=== PATIENT | female | born 1965 | race Caucasian/White ===

== ENCOUNTER → 2016-11-24 | Outpatient (CLI) | payer BC ==
[~2016-11-24] MED LIST: BUPR-79 PO; BUPR75TA20 PO; MELO7.5T5 PO; MULT-506 PO
--- NOTE | 2016-11-24 10:42 | DIAGNOSTIC IMAGING REPORT ---
LUMBAR SPINE MRI HISTORY: Low back pain. TECHNIQUE: Multiplanar multisequence MRI of the lumbar spine was performed without the use of contrast. COMPARISON: Lumbar spine 10/28/2016. FINDINGS: For the purpose of the report the L5-S1 disc space will be located on axial image 27 of 30. There is 2 mm of anterolisthesis of L3 on L4. Remaining vertebral bodies are well aligned. No acute fractures. A 2.8 cm lesion within the L3 vertebral body. This likely represents a hemangioma. There is also a 1.4 cm hemangioma within the L1 vertebral body. The conus terminus at the T12-L1 disc space. Paraspinal soft tissues are unremarkable. No significant disc space narrowing. Mild facet osteoarthritis within the mid to lower lumbar spine. L1-L2: No significant central canal or neural foraminal narrowing. Tiny broad-based posterior disc bulge. L2-L3: Small broad-based posterior disc bulge asymmetric to the right. No significant central canal narrowing. There is mild right-sided neural foraminal narrowing. L3-L4: Small broad-based posterior disc bulge with mild ligamentum and facet hypertrophy resulting in mild central canal and mild bilateral neural foraminal narrowing. L4-L5: Small broad-based posterior disc bulge. Tiny bilateral foraminal annular tears. No significant central canal narrowing. There is mild bilateral neural foraminal narrowing due to the facet hypertrophy and disc bulge. L5-S1: No disc herniations. No significant central canal or neural foraminal narrowing. IMPRESSION: 1. No fractures identified within the lumbar spine. 2. Grade I anterolisthesis of L3 on L4, unchanged. 3. Mild lumbar spondylosis as described above most pronounced at the L3-L4 level with there is mild central canal and mild bilateral neural foraminal narrowing. 4. Mild facet degenerative changes within the mid to lower lumbar spine Electronically signed by: Harry Breen M.D. 11/24/2016 10:40 AM Dictated Date/Time: 11/24/2016 10:31 AM
== END | disposition home or self-care (01) ==
LOC: C.MRI 09:19
PROVIDERS: ATTEND Physical Medicine & Rehabilitation
DX: M54.18 Radiculopathy, sacral and sacrococcygeal region (principal)

== ENCOUNTER → 2016-11-28 | Outpatient (CLI) | payer BC | END | disposition home or self-care (01) | LOC: C.PAPS 13:37 | PROVIDERS: ATTEND Obstetrics & Gynecology | DX: Z01.419 Encounter for gynecological examination (general) (routine) without abnormal findings (principal) ==

== ENCOUNTER → 2016-12-31 | Day surgery (SDC) | payer BC ==
[2016-12-17 08:03] VITALS: Ht 165.1 cm; Wt 65.9 kg
[~2016-12-31] VITALS: Ht 165.1 cm; Wt 65.9 kg
[~2016-12-31] MED LIST changes: +BUPIVACAINE 0.25% 2.5MG/ML PF 10 ML VIAL INFIL ONE; -BUPR75TA20 PO; +LIDOCAINE HCL 1% MPF 5 ML VIAL ONE; -MELO7.5T5 PO
--- NOTE | 2016-12-31 13:51 | History & Physical Bridge - SC ---
H&P Re-Evaluation Bridge Note: I have examined the patient, reviewed the History & Physical and in the interval since the performance of the History & Physical I have noted the following changes of clinical significance: No changes noted
--- NOTE | 2016-12-31 14:21 | Discharge Instructions ---
Discharge Instructions Visit Reason for Visit: Low Back Pain Discharge Discharge Diagnosis / Problem: Low back pain Discharge Goals Goal(s): Decrease discomfort, Improve function Activity Recommendations Activity Limitations: resume your previous activity Anesthesia . Post Anesthesia Instructions: If you have had General Anesthesia or IV Sedation: * Do not drive today. * Resume driving when surgeon permits. * Do not make important decisions or sign legal documents today. * Call surgeon for: 1. Temperature elevations greater than 101 degrees F. 2. Uncontrollable pain. 3. Excessive bleeding. 4. Persistent nausea and vomiting. 5. Medication intolerance (nausea, vomiting or rash). * For nausea and vomiting use only clear liquids such as: tea, soda, bouillon until nausea subsides, then gradually increase diet as tolerated. * If you have any concerns or questions, call your surgeon's office. If physician is unavailable and it is an emergency, call 911 or go to the nearest emergency room. . Diet Recommendations Recommended Home Diet: resume previous diet Procedures Procedures Performed: BILATERAL L4-5 MEDIAL BRANCH BLOCK Pending Studies Studies pending at discharge: no Medical Emergencies . Who to Call and When: Medical Emergencies: If at any time you feel your situation is an emergency, please call 911 immediately. . Non-Emergent Contact Non-Emergency issues call your: Specialist . . "Provider Documentation" section prepared by Talha Shah.
[2016-12-31 14:22] VITALS: TEMP 36.8
[2016-12-31 14:28] VITALS: BP 110/87; PULSE 80; O2SAT 96
--- NOTE | 2017-01-01 01:06 | OPERATIVE REPORT ---
DATE OF OPERATION: 12/31/2016 PREOPERATIVE DIAGNOSES: Chronic low back pain, grade 1 L3-L4 spondylolisthesis with L4-L5 bilateral facet arthropathy. POSTOPERATIVE DIAGNOSES: Same. PROCEDURE: Bilateral L4-L5 medial branch blocks. INDICATIONS: The patient is a 51-year-old white female that has pain localizing to her lower lumbar spine. Her physical examination, history findings, and MRI are consistent with a facet arthropathy and she presents today for medial branch blocks to indeed confirm this as the pain generator for her lower lumbar spine. PHYSICAL EXAMINATION: Pleasant female seated comfortably. She has tenderness to palpation over the L4-L5 facet areas. This is worse with extension and rotation, other areas are nontender. She has some equivocable to decreased sensation in the right L5 dermatomal distribution. CONSENT: Verbal and written consent was obtained from the patient. Risks and benefits were reviewed. Risks include but are not limited to abscess and allergic reaction. The patient wishes to proceed. DESCRIPTION OF PROCEDURE: The patient was taken back to the special procedures room of the [facility] where she was maintained in a prone position. Backside was cleansed with Betadine x3 and a dry sterile dressing was applied. Fluoroscope was used to identify the left L4 transverse process and the left 5 transverse process junctions and the overlying skin was anesthetized with 2 mL of lidocaine with a 25-gauge 1.5-inch needle on the left side at L4 and then at L5. A 25-gauge 3.5-inch spinal needle was then directed under fluoroscopic guidance, contacting bony target at each site and then injected with 1 mL of bupivacaine 0.25%. The right L4 transverse process junction and the right L5 transverse process junction were then fluoroscopically identified. Overlying skin anesthetized with 1.25 mL of lidocaine 1% with a 25-gauge 1.5-inch needle. A 25-gauge 3.5-inch spinal needle at each site contacted bone at L4, then L5, and she then underwent injection after negative aspiration of bupivacaine 0.25%, 1 mL at each site. The procedure was well tolerated. DISPOSITION: 1. The patient is taken out into the discharge recovery area where she will be discharged home once discharge criteria have been met. 2. Follow up in the [facility] office in 2-4 weeks. I attest to the content of the Intraoperative Record and any orders documented therein. Any exceptio ns are noted below.
== END | disposition home or self-care (01) ==
LOC: X.SURG 12:57
PROVIDERS: ATTEND Physical Medicine & Rehabilitation
DX: M47.816 Spondylosis without myelopathy or radiculopathy, lumbar region (principal); M43.16 Spondylolisthesis, lumbar region

== ENCOUNTER → 2017-06-26 | Outpatient (CLI) | payer BC ==
[~2017-06-26] MED LIST changes: -BUPIVACAINE 0.25% 2.5MG/ML PF 10 ML VIAL INFIL ONE; -LIDOCAINE HCL 1% MPF 5 ML VIAL ONE
--- NOTE | 2017-06-26 11:39 | DIAGNOSTIC IMAGING REPORT ---
RIGHT FOOT MIN 3 VIEWS ROUTINE CLINICAL HISTORY: Dorsal right first metatarsal pain. No recent injury. COMPARISON: None FINDINGS: Tarsometatarsal joints are intact. No acute fracture or osseous lesion is identified within the right foot. No erosions are identified. Joint spaces are preserved. IMPRESSION: Unremarkable right foot radiographs. Electronically signed by: Rolf Philippe M.D. 06/26/2017 11:38 AM Dictated Date/Time: 06/26/2017 11:37 AM
== END | disposition home or self-care (01) ==
LOC: C.RAD 10:32
PROVIDERS: ATTEND Family Medicine
DX: M79.671 Pain in right foot (principal)

== ENCOUNTER → 2017-07-09 | Outpatient (CLI) | payer BC ==
--- NOTE | 2017-07-09 11:37 | DIAGNOSTIC IMAGING REPORT ---
RIGHT LOWER EXT NON JOINT W/O CLINICAL HISTORY: R FOOT Pain/sprain, stress FX Right pain TECHNIQUE: Multiaxial MRI acquisition COMPARISON STUDY: None FINDINGS: Signal characteristics of all major osseous structures are unremarkable. There is no significant bone marrow replacing process. There is no abnormal periosteal change. All major ligamentous and tendinous structures are intact. There is a mild degree of subcutaneous and soft tissue edematous change dorsal to the metatarsals. No mass or collection is appreciated. IMPRESSION: 1. Mild nonspecific soft tissue edema dorsal to the metatarsal. 2. Study is otherwise negative. 3. No evidence for significant bony abnormality The above report was generated using voice recognition software. It may contain grammatical, syntax or spelling errors. Electronically signed by: Yinka Lafleur M.D. 07/09/2017 11:36 AM Dictated Date/Time: 07/09/2017 11:30 AM
== END | disposition home or self-care (01) ==
LOC: C.MRIBC 09:53
PROVIDERS: ATTEND Podiatrist
DX: M79.671 Pain in right foot (principal); M84.374A Stress fracture, right foot, initial encounter for fracture; S93.691A Other sprain of right foot, initial encounter; X58.XXXA Exposure to other specified factors, initial encounter; Z87.42 Personal history of other diseases of the female genital tract

== ENCOUNTER → 2017-08-04 | Outpatient (CLI) | payer BC ==
--- NOTE | 2017-08-05 08:12 | MAMMOGRAPHY REPORT ---
BILATERAL DIGITAL SCREENING MAMMOGRAM TOMOSYNTHESIS WITH CAD: 08/04/2017 CLINICAL HISTORY: Routine screening. Patient has no complaints. TECHNIQUE: Breast tomosynthesis in addition to standard 2D mammography was performed. Current study was also evaluated with a Computer Aided Detection (CAD) system. COMPARISON: Comparison is made to exams dated: 07/30/2016 mammogram, 05/02/2015 mammogram, 05/01/2014 ma mmogram, 04/28/2013 mammogram - [facility], 03/01/2012 breast MRI - Outside MRI, and 02/20/2012 ultrasound - [facility]. BREAST COMPOSITION: The tissue of both breasts is almost entirely fatty. The breast parenchyma is i ncreasingly fatty replaced comparing to prior mammograms. FINDINGS: No suspicious mass, architectural distortion or cluster of microcalcifications is seen. IMPRESSION: ACR BI-RADS CATEGORY 1: NEGATIVE There is no mammographic evidence of malignancy. A 1 year screening mammogram is recommended. The pa tient will receive written notification of the results. Approximately 10% of breast cancers are not detected with mammography. A negative mammographic report should not delay biopsy if a clinically suggestive mass is present. Mili Sylvester M.D. ay/:08/04/2017 16:13:38 Rf Technician: Sheri DEMPSEY(R)(M), [facility] letter sent: Normal 1/2 BI-RADS Code: ACR BI-RADS Category 1: Negative
== END | disposition home or self-care (01) ==
LOC: C.MAMM 09:09
PROVIDERS: ATTEND Family Medicine
DX: Z12.31 Encounter for screening mammogram for malignant neoplasm of breast (principal)

== ENCOUNTER 2017-11-02 06:24 | Emergency (ER) | payer BC ==
[~2017-11-02] VITALS: Ht 165.1 cm; Wt 69.5 kg
[2017-11-02 06:28] VITALS: TEMP 37.1; Ht 165.1 cm; Wt 69.5 kg
[2017-11-02] MEDS ORDERED: HYDR-4313 PO (07:06)
[2017-11-02] MEDS ORDERED: PSEUCAP67 PO (07:06)
[2017-11-02] MEDS ORDERED: SODIUM CHLORIDE 0.9% 1000ML 1,000 ML IV STA (07:12)
[2017-11-02] MEDS ORDERED: KETOROLAC TROMETHAMINE 30 MG/ML VIAL IV STA (07:12)
[2017-11-02] MEDS ORDERED: ONDANSETRON INJ 2 MG/ML 2 ML VIAL IV STA (07:12)
[2017-11-02] MEDS ORDERED: MoRPHine SULFATE 4 MG/ML 1 ML CARP\\VIAL IV PRN (07:15)
--- NOTE | 2017-11-02 07:35 | DIAGNOSTIC IMAGING REPORT ---
SINGLE VIEW CHEST CLINICAL HISTORY: Fever. Sepsis. FINDINGS: An AP, portable, upright chest radiograph is obtained. No prior studies are available for comparison at the time of dictation. The cardiomediastinal silhouette is unremarkable. The lungs and pleural spaces are clear. No pneumothorax is seen. The bony thorax is grossly intact. IMPRESSION: No active disease in the chest. Electronically signed by: Dave Dinero M.D. 11/02/2017 7:33 AM Dictated Date/Time: 11/02/2017 7:33 AM
[2017-11-02 07:44] LABS: BASO % 0.4 %; BASO ABS # 0.02 K/uL (0-0.2); EOS % 0.2 %; EOS ABS # 0.01 K/uL (0-0.5); HEMATOCRIT 38.3 % (37-47); HEMOGLOBIN 13.4 g/dL (12.0-16.0); IG# 0.01 K/uL (0.00-0.02); LYMPH % 4.1 %; LYMPH ABS # 0.19 K/uL (1.2-3.4); MEAN CELL VOLUME 92.3 fL (80-100); MEAN CORPUSCULAR HEMOGLOBIN 32.3 pg (25-34); MEAN PLATELET VOLUME 11.5 fL (7.4-10.4); MONO % 4.8 %; MONO ABS # 0.22 K/uL (0.11-0.59); NEUT % 90.3 %; NEUT ABS # 4.15 K/uL (1.4-6.5); PLATELET COUNT 168 K/uL (130-400); RED CELL DISTRIBUTION WIDTH CV 12.8 % (11.5-14.5); RED CELL DISTRIBUTION WIDTH SD 43.2 fL (36.4-46.3)
--- NOTE | 2017-11-02 07:56 | DIAGNOSTIC IMAGING REPORT ---
CT SCAN OF THE BRAIN WITHOUT IV CONTRAST CLINICAL HISTORY: Headache. COMPARISON STUDY: No priors. TECHNIQUE: Unenhanced axial CT scan of the brain is performed from the vertex to the skull base. A dose lowering technique was utilized adhering to the principles of ALARA. CT DOSE: 537.48 mGy.cm FINDINGS: Brain parenchyma: The brain parenchyma is normal in appearance. There is no hemorrhage, mass effect, or evidence of acute territorial ischemia by CT criteria. Ortiz-white matter is preserved. No extra-axial fluid collection is seen. Ventricles, sulci, cisterns: Normal in configuration. Intracranial vasculature: The visualized intracranial vasculature at the skull base is normal in appearance. Calvarium: Unremarkable. Sinuses and mastoids: The visualized paranasal sinuses are clear. The mastoid air cells are well pneumatized. Orbits: The bony orbits are grossly intact. IMPRESSION: No acute intracranial abnormality. Electronically signed by: Dave Dinero M.D. 11/02/2017 7:55 AM Dictated Date/Time: 11/02/2017 7:54 AM
[2017-11-02 07:57] LABS: ALBUMIN 3.5 gm/dl (3.4-5.0); ALT/SGPT 17 U/L (12-78); BLOOD UREA NITROGEN 8 mg/dl (7-18); CALCIUM 8.1 mg/dl (8.5-10.1); CARBON DIOXIDE 25 mmol/L (21-32); CREATININE 0.68 mg/dl (0.60-1.20); GLUCOSE 119 mg/dl (70-99); POTASSIUM 3.8 mmol/L (3.5-5.1); SODIUM 130 mmol/L (136-145)
[2017-11-02 08:00] LABS: ALKALINE PHOSPHATASE 39 U/L (45-117); AST/SGOT 16 U/L (15-37); TOTAL PROTEIN 6.4 gm/dl (6.4-8.2)
[2017-11-02 08:38] LABS: INFLUENZA B ANTIGEN Neg for Influ B (NEG)
--- NOTE | 2017-11-02 10:41 | EMERGENCY ROOM VISIT NOTE ---
History Report prepared by [place]: Reba Barfield Under the Supervision of: Mc UriasO. First contact with patient: 06:49 Chief Complaint: HEADACHE Stated Complaint: SEVERE HEADACHE History of Present Illness The patient is a 52 year old female who presents to the Emergency Room with complaints of persistent headache for 23 hours [employer]GLISH [employer]. The patient states that she woke up yesterday morning with a headache. She currently rates her pain a 9/10 in severity. She notes that she has a chest cold, nasal congestion, cough, sore throat, nausea, light sensitivity, and mild neck pain. She took Advil Cold and Sinus medication yesterday. She also took a Vicodin. She denies any chest pain, fevers, or recent injuries. Source of History: patient Onset: 23 hours ENGLISH [employer] Position: head Symptom Intensity: 9/10 Quality: ache Timing: other (persistent) Associated Symptoms: + sorethroat, + cough, + neck pain (mild), + nausea, No fevers, No chest pain Note: She notes chest cold, nasal congestion, and light sensitivity. She denies any recent injuries. Review of Systems See HPI for pertinent positives & negatives. A total of 10 systems reviewed and were otherwise negative. Past Medical & Surgical Medical Problems: (1) H/O migraine Family History No pertinent family history reported. Social History Smoking Status: Never Smoker Alcohol Use: occasionally Marital Status: Housing Status: lives with family Current/Historical Medications Scheduled Bupropion (Wellbutrin Sr), 150 MG PO QAM Multivitamin (Multivitamin), 1 TAB PO QAM Pseudoephedrine-Ibuprofen (Advil Cold & Sinus), 1-2 CAP PO UD Scheduled PRN Acetaminophen/Hydrocodone (Hydrocodone/Acetaminophen 5-325 mg), 1-2 TABS PO Q4H PRN for Pain Allergies Coded Allergies: No Known Allergies (Verified , 11/02/17) Physical Exam Vital Signs Date Time Temp Pulse Resp B/P (MAP) Pulse Ox O2 Delivery O2 Flow Rate FiO2 11/02/17 09:36 68 20 100/60 92 11/02/17 07:50 68 20 101/66 93 Room Air 11/02/17 06:28 37.1 81 20 123/80 95 Room Air Physical Exam CONSTITUTIONAL/VITAL SIGNS: Reviewed / noted above. GENERAL: Non-toxic in appearance. INTEGUMENTARY: Warm, dry, and [place]. HEAD: Normocephalic. EYES: without scleral icterus or trauma. ENT/OROPHARYNX: clear and moist. LYMPHADENOPATHY/NECK: Is supple without lymphadenopathy or meningismus. RESPIRATORY: Lungs clear and equal. CARDIOVASCULAR: Regular rate and rhythm. GI/ABDOMEN: Soft and nontender. No organomegaly or pulsatile mass. No rebound or guarding. Normal bowel sounds. EXTREMITIES: Warm and well perfused. BACK: No CVA tenderness. NEUROLOGICAL: Intact without focal deficits. PSYCHIATRIC: normal affect. MUSCULOSKELETAL: Normally developed with good muscle tone. Medical Decision & Procedures ER Provider Diagnostic Interpretation: Radiology results as stated below per my review and radiologist interpretation: SINGLE VIEW CHEST CLINICAL HISTORY: Fever. Sepsis. FINDINGS: An AP, portable, upright chest radiograph is obtained. No prior studies are available for comparison at the time of dictation. The cardiomediastinal silhouette is unremarkable. The lungs and pleural spaces are clear. No pneumothorax is seen. The bony thorax is grossly intact. IMPRESSION: No active disease in the chest. Electronically signed by: Dave Dinero M.D. 11/02/2017 7:33 AM Dictated Date/Time: 11/02/2017 7:[address] SCAN OF THE BRAIN WITHOUT IV CONTRAST CLINICAL HISTORY: Headache. COMPARISON STUDY: No priors. TECHNIQUE: Unenhanced axial CT scan of the brain is performed from the vertex to the skull base. A dose lowering technique was utilized adhering to the principles of ALARA. CT DOSE: 537.48 mGy.cm FINDINGS: Brain parenchyma: The brain parenchyma is normal in appearance. There is no hemorrhage, mass effect, or evidence of acute territorial ischemia by CT criteria. Ortiz-white matter is preserved. No extra-axial fluid collection is seen. Ventricles, sulci, cisterns: Normal in configuration. Intracranial vasculature: The visualized intracranial vasculature at the skull base is normal in appearance. Calvarium: Unremarkable. Sinuses and mastoids: The visualized paranasal sinuses are clear. The mastoid air cells are well pneumatized. Orbits: The bony orbits are grossly intact. IMPRESSION: No acute intracranial abnormality. Electronically signed by: Dave Dinero M.D. 11/02/2017 7:55 AM Dictated Date/Time: 11/02/2017 7:54 AM Laboratory Results 11/02/17 07:30 Red Blood Count 4.15, Mean Corpuscular Volume 92.3, Mean Corpuscular Hemoglobin 32.3, Mean Corpuscular Hemoglobin Concent 35.0, Mean Platelet Volume 11.5, Neutrophils (%) (Auto) 90.3, Lymphocytes (%) (Auto) 4.1, Monocytes (%) (Auto) 4.8, Eosinophils (%) (Auto) 0.2, Basophils (%) (Auto) 0.4, Neutrophils # (Auto) 4.15, Lymphocytes # (Auto) 0.19, Monocytes # (Auto) 0.22, Eosinophils # (Auto) 0.01, Basophils # (Auto) 0.02 11/02/17 07:30 Test 11/02/17 07:30 11/02/17 08:15 White Blood Count 4.60 K/uL (4.8-10.8) Red Blood Count 4.15 M/uL (4.2-5.4) Hemoglobin 13.4 g/dL (12.0-16.0) Hematocrit 38.3 % (37-47) Mean Corpuscular Volume 92.3 fL (80-100) Mean Corpuscular Hemoglobin 32.3 pg (25-34) Mean Corpuscular Hemoglobin Concent 35.0 g/dl (32-36) Platelet Count 168 K/uL (130-400) Mean Platelet Volume 11.5 fL (7.4-10.4) Neutrophils (%) (Auto) 90.3 % Lymphocytes (%) (Auto) 4.1 % Monocytes (%) (Auto) 4.8 % Eosinophils (%) (Auto) 0.2 % Basophils (%) (Auto) 0.4 % Neutrophils # (Auto) 4.15 K/uL (1.4-6.5) Lymphocytes # (Auto) 0.19 K/uL (1.2-3.4) Monocytes # (Auto) 0.22 K/uL (0.11-0.59) Eosinophils # (Auto) 0.01 K/uL (0-0.5) Basophils # (Auto) 0.02 K/uL (0-0.2) RDW Standard Deviation 43.2 fL (36.4-46.3) RDW Coefficient of Variation 12.8 % (11.5-14.5) Immature Granulocyte % (Auto) 0.2 % Immature Granulocyte # (Auto) 0.01 K/uL (0.00-0.02) Erythrocyte Sedimentation Rate 5 mm/hr (0-21) Anion Gap 8.0 mmol/L (3-11) Est Creatinine Clear Calc Drug Dose 93.6 ml/min Estimated GFR () 115.7 Estimated GFR (Non- 99.9 BUN/Creatinine Ratio 12.1 (10-20) Calcium Level 8.1 mg/dl (8.5-10.1) Total Bilirubin 0.4 mg/dl (0.2-1) Direct Bilirubin < 0.1 mg/dl (0-0.2) Aspartate Amino Transf (AST/SGOT) 16 U/L (15-37) Alanine Aminotransferase (ALT/SGPT) 17 U/L (12-78) Alkaline Phosphatase 39 U/L (45-117) C-Reactive Protein 5.94 mg/dl (0-0.29) Total Protein 6.4 gm/dl (6.4-8.2) Albumin 3.5 gm/dl (3.4-5.0) Influenza Type A Antigen Neg for Influ A (NEG) Influenza Type B Antigen Neg for Influ B (NEG) Laboratory results as stated above per my review. Medications Administered Medications (Trade) Dose Ordered Sig/Jane Route Start Time Stop Time Status Last Admin Dose Admin Sodium Chloride 1,000 ml @ 999 mls/hr Q1H1M STAT IV 11/02/17 07:12 11/02/17 08:12 DC 11/02/17 07:35 999 MLS/HR Ketorolac Tromethamine (Toradol Inj) 30 mg NOW STAT IV 11/02/17 07:12 11/02/17 07:15 DC 11/02/17 07:37 30 MG Morphine Sulfate (MoRPHine SULFATE INJ) 4 mg Q1H PRN IV 11/02/17 07:15 11/16/17 07:14 11/02/17 07:38 4 MG Ondansetron HCl (Zofran Inj) 4 mg NOW STAT IV 11/02/17 07:12 11/02/17 07:15 DC 11/02/17 07:35 4 MG ED Course 0658: Previous medical records were reviewed. The patient was evaluated in room A9B. A complete history and physical examination was performed. 0712: Ordered Zofran 4 mg IV, Toradol 30 mg IV, and Sodium Chloride 1,000 ml @ 999 mls/hr IV 0715: Morphine Sulfate 4 mg IV 1038: I reassessed the patient at this time. She is feeling better and resting comfortably. I discussed the results and treatment plan with the patient. I answered all pertaining questions that she had. She expressed understanding and verbalized agreement. The patient will be discharged home. Medical Decision Differential includes viral illness, influenza, streptococcal pharyngitis, meningitis, pneumonia, sinusitis, UTI, pyelonephritis, and otitis media. This is a 52-year-old female who presents to the ED with a chief complaint of a headache and chest cold. The patient reports that her symptoms started yesterday. She states that she developed a dry cough and sore throat. She then developed a frontal headache, congestion and cough. The patient states that she has been using Advil Cold and Sinus for her symptoms. She came in today because of continued symptoms of worsening headache. The headache is in the frontal region. She states that she felt like it was a sinus infection. She does report some mild light sensitivity. No neck stiffness. Vital signs are normal. She has not had a fever. She is afebrile today. Her physical exam did not reveal meningismus or photophobia. She has mild posterior oropharyngeal erythema. No lymphadenopathy. Lungs are clear. Abdomen soft and nontender. No rashes. A CT scan of the head and sinuses did not show acute process. Chest x-ray was negative for acute disease. CBC was unremarkable. Sedimentation rate was normal, CRP was slightly elevated at 5.9. Flu swab was negative. CMP was unremarkable. The patient was told results the test. She is felt to be stable for discharge per she was treated with IV fluids, IV Toradol, IV Zofran and IV morphine. She was feeling much better and , disposition and discharge. Percocet home pack provided. Medication Reconcilliation Current Medication List: was personally reviewed by me Blood Pressure Screening Patient's blood pressure: Normal blood pressure Impression Primary Impression: Headache Additional Impression: Cough Scribe Attestation The scribe's documentation has been prepared under my direction and personally reviewed by me in its entirety. I confirm that the note above accurately reflects all work, treatment, procedures, and medical decision making performed by me. Departure Information Dispostion Home / Self-Care Referrals Litzy Cochran M.D. (PCP) Patient Instructions [facility] Additional Instructions Percocet: Take 1 every 4-6 hours as needed for pain. Follow-up with your doctor in 1-2 days for recheck if symptoms persist. Return here for worsening or new concerns. Problem Qualifiers
[2017-11-02] MEDS ORDERED: PERCOCET HOME PACK PO ONE (10:45)
[2017-11-02 11:13] VITALS: BP 94/62; PULSE 55; O2SAT 100
== END 2017-11-02 11:14 | disposition home or self-care (01) ==
LOC: C.EDB 06:25 → C.EDA 11:14
DX: R51 Headache (principal); R05 Cough

== ENCOUNTER → 2017-12-02 | Outpatient (CLI) | payer BC ==
[~2017-12-02] MED LIST changes: +HYDR-4313 PO; +PSEUCAP67 PO
== END | disposition home or self-care (01) ==
LOC: C.PAPS 16:58
PROVIDERS: ATTEND Physician Assistant
DX: Z01.419 Encounter for gynecological examination (general) (routine) without abnormal findings (principal); Z11.51 Encounter for screening for human papillomavirus (HPV)